=== PATIENT | male | born 1980 | race Caucasian/White ===

== ENCOUNTER → 2018-04-01 09:02 | Outpatient (CLI) | payer OTHER, SELFPAY ==
--- NOTE | 2018-04-01 09:11 | MR_ITS ---
MR head/brain wo/w con HISTORY: Severe headache, dizziness, nausea, blurred vision ITS.REASON: INTRACTABLE MIGRAINE WITH AURA ORDERING PHYSICIAN: David Gallardo MD PATIENT AGE: 37 years Comparison: None TECHNIQUE: Standard multiplanar multiecho sequences are performed without and with gadolinium enhancement. FINDINGS: No midline shift, mass effect, intracranial hemorrhage, or hydrocephalus is evident. No abnormal enhancement. No evidence of acute infarction. There is a small focus of increased T2 signal in the subcortical region of the left parietal lobe nonspecific. This does not enhance and does not show restricted diffusion. The pituitary is unremarkable as is the optic chiasm. No cerebellar ectopia. Hippocampal gyri are unremarkable in the temporal horns are somewhat symmetric. No intra or extra-axial mass. No large aneurysms. No mastoid effusion or sinus air-fluid level. Craniocervical junction has an unremarkable appearance. IMPRESSION: 1. No acute intracranial finding. 2. Small T2 white matter hyperintensity in the subcortical region of the left parietal lobe. This is nonspecific and may be due to small gliotic focus
--- NOTE | 2018-04-01 09:22 | XR_ITS ---
XR orbit bilateral min 4V HISTORY: History of metallic foreign body in the eyes. Clearance for MRI needed ITS.REASON: RULE OUT METAL FOREIGN BODY FOR MRI ORDERING PHYSICIAN: David Gallardo MD PATIENT AGE: 37 years Comparison: None TECHNIQUE: AP views are obtained of the orbits with the patient looking up and down FINDINGS: No radio opaque foreign bodies evident. IMPRESSION: No radio opaque orbital foreign body identified
== END ==
PROVIDERS: Family Provider Family Medicine; PCP Family Medicine; Visit Provider Family Medicine
DX: G43.111 Migraine with aura, intractable, with status migrainosus (principal)
CPT/HCPCS: 70200; 70553; A9576

== ENCOUNTER → 2018-06-07 14:36 | Outpatient (CLI) | payer OTHER, SELFPAY ==
--- NOTE | 2018-06-07 14:39 | MR_ITS ---
MR cervical spine wo con, MR 3-d myelogram/MRCP HISTORY: Neck pain with Bilateral hand and arm tingling ITS.REASON: evaluation for spinal lesions ORDERING PHYSICIAN: Morelia Hernandez MD PATIENT AGE: 37 years Comparison: None TECHNIQUE: Standard multiplanar multiecho sequences are performed without contrast. 3-D MIP and myelographic images are also rendered and reviewed FINDINGS: There is normal alignment. Craniocervical junction has an unremarkable appearance. No spinal cord lesions are evident. C2-C3, eatery C4, C4-C5, and C5-C6 have an unremarkable appearance. There is minimal bulging disc slightly eccentric toward the right at C6-C7 without neural impingement. No disc herniation canal stenosis or other significant anomalies evident. IMPRESSION: 1. Minimal bulging disc slightly eccentric to the right at C6-C7. 2. Otherwise negative MRI of the cervical spine. 3. No spinal cord lesions apparent
--- NOTE | 2018-06-07 16:14 | XR_ITS ---
XR orbit bilateral min 4V HISTORY: History of metallic foreign body in the eyes. Clearance for MRI needed ITS.REASON: RULE OUT METAL FOREIGN BODY FOR MRI ORDERING PHYSICIAN: Morelia Hernandez MD PATIENT AGE: 37 years Comparison: None TECHNIQUE: AP views are obtained of the orbits with the patient looking up and down FINDINGS: No radio opaque foreign bodies evident. IMPRESSION: No radio opaque orbital foreign body identified
== END ==
PROVIDERS: PCP Physician Assistant; Visit Provider Specialist
DX: R20.0 Anesthesia of skin (principal); R20.2 Paresthesia of skin; R20.8 Other disturbances of skin sensation; R51 Headache
CPT/HCPCS: 70200; 72141; 76376

== ENCOUNTER → 2018-09-16 17:03 | Outpatient (CLI) | payer BC, SELFPAY ==
[2018-09-16 17:38] LABS: Basophils % 0.5 % (0.1-2.0); Eosinophils # 0.1 K/mm3 (0.0-0.4); Hematocrit 46.6 % (42.0-52.0); Hemoglobin 15.7 g/dL (14.1-18.0); Lymphocytes # 3.1 K/mm3 (0.7-4.5); Lymphocytes % 37.4 % (10-50); Mean Corpuscular HGB Conc 33.6 g/dL (31.8-35.4); Mean Corpuscular Hemoglobin 29.8 pg (27.0-31.2); Mean Corpuscular Volume 88.8 fl (80-94); Mean Platelet Volume 8.2 fl (7.4-10.4); Monocytes # 0.6 K/mm3 (0.1-1.0); Monocytes % 7.7 % (1.7-9.3); Neutrophils # 4.4 K/mm3 (1.8-7.8); Neutrophils % 53.5 % (37.0-80.0); Platelet Count 232 K/mm3 (142-424); Red Blood Count 5.25 M/mm3 (4.60-6.20); Red Cell Distribution Width 12.5 % (11.5-17.5); White Blood Count 8.2 K/mm3 (4.8-10.8)
[2018-09-16 17:56] LABS: Alanine Aminotransferase 51 U/L (12-78); Albumin Level 4.1 gm/dL (3.4-5.0); Albumin/Globulin Ratio 1.1 (1.1-1.8); Alkaline Phosphatase 106 U/L (46-116); Anion Gap 15.9 mEq/L (5-15); Aspartate Amino Transferase 22 U/L (15-37); Bilirubin,Total 0.2 mg/dL (0.2-1.0); Blood Urea Nitrogen 11 mg/dL (7-18); Calcium 8.6 mg/dL (8.5-10.1); Carbon Dioxide 26 mmol/L (21.0-32.0); Chloride 104 mmol/L (98-107); Creatinine,Serum 0.85 mg/dL (0.70-1.30); Estimated Glomerular Filt Rate 103 ml/min (>60); GFR (African American) 124 ML/MIN (>60); Globulin 3.6 gm/dl (1.3-3.2); Glucose 90 mg/dL (74-106); Potassium 3.9 mmoL/L (3.5-5.1); Sodium 142 mmol/L (136-145); Total Protein,Serum 7.7 gm/dL (6.4-8.2)
== END ==
PROVIDERS: Visit Provider Specialist
DX: R51 Headache (principal)
CPT/HCPCS: 36415; 80053; 85025

== ENCOUNTER → 2018-11-21 17:33 | Outpatient (CLI) | payer BC, SELFPAY | PROVIDERS: PCP Family Medicine; Visit Provider Specialist | DX: R51 Headache (principal) | CPT/HCPCS: 94762 ==

== ENCOUNTER → 2022-09-20 15:27 | Outpatient (CLI) | payer OTHER, SELFPAY ==
[2022-09-20 15:43] LABS: Coronavirus 19, PCR Not Detected (NotDetected); Influenza B, PCR Not Detected (NotDetected)
[2022-09-20 16:20] LABS: Influenza A, PCR Detected (NotDetected)
== END ==
PROVIDERS: PCP Physician Assistant; Visit Provider Physician Assistant
DX: J09.X2 Influenza due to identified novel influenza A virus with other respiratory manifestations (principal)
CPT/HCPCS: C9803; U0003; U0005

== ENCOUNTER 2023-06-03 18:33 | Emergency (ER) | payer OTHER, SELFPAY ==
[2023-06-03 18:34] VITALS: BP 120/84; PULSE 86; RESP 18; TEMP 36.6; O2SAT 96; BMI 33.3
--- NOTE | 2023-06-03 18:56 | [facility].EDGENADL ---
Discharge Plan Disposition Patient Disposition: Home, Self-Care Chief Complaint: Eye Problems Prescriptions Prescriptions: No Action naproxen 500 mg tablet 500 mg PO BID PRN (Reason: pain) Qty: 60 3RF Emgality Pen 120 mg/mL pen injector 120 mg SQ QMONTH Qty: 1 6RF Referrals Follow up/Referrals: David Gallardo MD [Primary Care Provider] - See instructions Activity Restrictions/Add. Instructions Additional Instructions/Restrictions: Because patient at baseline without signs or symptoms of clinical decompensation, deemed appropriate for discharge. Results were relayed to patient structured who voiced understanding and were agreeable to outpatient management and follow up. At the time of discharge the patient was hemodynamically stable, tolerating PO, and mobilizing appropriately. Clinical Impressions Clinical Impression: Acute foreign body of right eye Qualifiers: Encounter type: initial encounter Qualified Code(s): T15.91XA - Foreign body on external eye, part unspecified, right eye, initial encounter Discharge ED Provider: Johnny Denton General Adult HPI General Chief complaint: Eye Problems Stated complaint: R Eye pain possible sawdust Time Seen by Provider: 06/03/23 18:37 Mode of Arrival: Ambulatory Source of Information: Patient Limitations: No Limitations Description of Symptoms (Recalled from ER Triage Doc. by RN): a week ago pt was cutting up a tree and got some wood in right eye and was given eye drops by eye doctor. today patient was moving wood logs and got something in right eye again. pt denies any vision issues History of Present Illness HPI narrative: 42-year-old male presenting with his right eye. He was cutting wood and had sawdust fly in his right eye. Having discomfort. Came to the emergency department for further evaluation. No vision deficits or pain. Just dull, foreign body sensation. Related Data Previous Rx's Medication Instructions Recorded galcanezumab-gnlm 120 mg/mL 120 mg SQ QMONTH #1 mL 05/06/20 subcutaneous pen injector (Emgality Pen) naproxen 500 mg tablet 500 mg PO BID PRN pain #60 tabs 05/06/20 Allergies Allergy/AdvReac Type Severity Reaction Status Date / Time Penicillins Allergy Mild Rash Verified 07/01/20 10:40 [facility] Disclaimer: The information contained in this section may have been updated after the patient was seen, as this information can be updated by other users. Social History Smoking Status: Never smoker alcohol intake: never substance use type: denies use current occupational status: employed Travel in the last 8 weeks: None household members: children housing: house ROS Obtained: Yes All systems reviewed & no additional complaints except as documented Physical Exam General General appearance: alert and in no apparent distress Head Head exam: atraumatic and normocephalic Eye Eye exam: Present normal appearance, PERRL, EOMI and conjunctival redness (Right eye. Foreign body right upper outer lid. Fluorescein exam negative) ENT ENT exam: Present mucous membranes moist Neck Neck exam: Present normal inspection, full ROM and trachea midline Respiratory Respiratory exam: Absent respiratory distress, wheezes, stridor, accessory muscle use or prolonged expiratory phase Cardiovascular Cardiovascular exam: Present normal rhythm Abdominal Exam Abdominal exam: Present soft; Absent distention, tenderness, guarding, rebound, rigidity or normal bowel sounds Extremities Exam Extremities exam: Absent edema Neurological Exam Neurological exam: Present alert, oriented X3, CN II-XII intact and normal gait; Absent motor sensory deficit Skin Skin exam: Present warm and dry; Absent diaphoresis or erythema Medical Decision Making Medical Records Medical records reviewed: Yes I reviewed the patient's medical records. Yousif Inquiry Pt receiving controlled substance: No Yousif was queried for this patient: No Vital Signs:
[2023-06-03 19:01] VITALS: BP 120/84; PULSE 86; RESP 18; TEMP 36.6; O2SAT 96
== END 2023-06-03 19:02 | disposition home or self-care (01) ==
PROVIDERS: Emergency Provider Emergency Medicine; PCP Family Medicine
DX: T15.91XA Foreign body on external eye, part unspecified, right eye, initial encounter (principal)
CPT/HCPCS: 65205; 99283

== ENCOUNTER 2024-09-20 08:44 | Outpatient (CLI) | payer BC, SELFPAY ==
[2024-09-20 09:13] LABS: Basophils % 0.3 % (0.1-2.0); Eosinophils # 0.1 K/mm3 (0.0-0.4); Eosinophils % 1.8 % (0.1-12.0); Hematocrit 41.4 % (42.0-52.0); Hemoglobin 13.9 g/dL (14.1-18.0); Lymphocytes # 3.1 K/mm3 (0.7-4.5); Lymphocytes % 43.6 % (10-50); Mean Corpuscular HGB Conc 33.6 g/dL (31.8-35.4); Mean Corpuscular Hemoglobin 30.5 pg (27.0-31.2); Mean Corpuscular Volume 90.8 fl (80-94); Mean Platelet Volume 10.6 fl (7.4-10.4); Monocytes # 0.7 K/mm3 (0.1-1.0); Monocytes % 9.6 % (1.7-9.3); Neutrophils # 3.2 K/mm3 (1.8-7.8); Neutrophils % 44.1 % (37.0-80.0); Platelet Count 222 K/mm3 (142-424); Red Blood Count 4.56 M/mm3 (4.60-6.20); Red Cell Distribution Width 12.5 % (11.5-17.5); White Blood Count 7.2 K/mm3 (4.8-10.8)
[2024-09-20 09:41] LABS: Albumin Level 4.1 g/dl (3.5-5.0); Chloride 107 mmol/L (98-107); Potassium 3.9 mmoL/L (3.5-5.1); Sodium 139 mmol/L (136-145)
[2024-09-20 09:44] LABS: Alanine Aminotransferase 58 U/L (12-78); Albumin/Globulin Ratio 1.7 (1.1-1.8); Alkaline Phosphatase 90 U/L (38-126); Anion Gap 9.9 mEq/L (5-15); Aspartate Amino Transferase 53 U/L (17-59); Bilirubin,Total 0.4 mg/dl (0.2-1.3); Blood Urea Nitrogen 16 mg/dl (9-20); Carbon Dioxide 26 mmol/L (22.0-30.0); Cholesterol 163 mg/dl (140-200); Estimated Glomerular Filt Rate 107 ml/min (>60); GFR (African American) 129 ML/MIN (>60); Globulin 2.4 g/dL (1.3-3.2); Total Protein,Serum 6.5 g/dl (6.3-8.2); Triglycerides 89 mg/dl (30-150); VLDL Cholesterol 18 mg/dL (0-40)
[2024-09-20 09:45] LABS: Calcium 8.5 mg/dl (8.4-10.2); Glucose 83 mg/dl (74-100); HDL Cholesterol 41 mg/dl (40-60)
[2024-09-20 09:55] LABS: Direct LDL Cholesterol 94.16 mg/dL (100-129)
[2024-09-20 10:14] LABS: Thyroid Stimulating Hormone 1.87 uIU/mL (0.465-4.68)
[2024-09-20 10:23] LABS: Hemoglobin A1C 5.3 % (4.0-6.0)
== END 2024-09-20 23:59 | disposition home or self-care (01) ==
LOC: LAB 08:48
PROVIDERS: PCP Family Medicine; Visit Provider Family Medicine
DX: R20.2 Paresthesia of skin (principal); Z13.220 Encounter for screening for lipoid disorders
CPT/HCPCS: 36415; 80053; 80061; 83036; 84443; 85025